=== PATIENT | female | born 1960 | race Asian ===

== ENCOUNTER 2017-11-26 15:01 | Emergency (ER) | payer SELFPAY ==
[~2017-11-26] VITALS: Ht 160 cm; Wt 60.8 kg
[2017-11-26 15:01] VITALS: BP_SYST 118
[2017-11-26 20:45] VITALS: BP_SYST 136
== END 2017-11-26 20:45 | disposition home or self-care (01) ==
LOC: SED 15:01
DX: J06.9 Acute upper respiratory infection, unspecified (principal); I10 Essential (primary) hypertension; E78.00 Pure hypercholesterolemia, unspecified
CPT/HCPCS: 36415; 86710; 99284